=== PATIENT | female | born 1960 | race Two or more races ===

== ENCOUNTER 2017-10-10 19:13 | Emergency (ER) | payer MEDICAID ==
[~2017-10-10] VITALS: Ht 165.1 cm; Wt 72.0 kg
[2017-10-10] MEDS ORDERED: IBUPROFEN 200 MG TABLET PO ONE (19:30)
[2017-10-10] MEDS ORDERED: IBUPROFEN 200 MG TABLET ONE (19:38)
[2017-10-10 19:41] VITALS: BP 117/83
== END 2017-10-10 21:15 | disposition left against medical advice (07) ==
LOC: ED 21:09
DX: T74.21XA Adult sexual abuse, confirmed, initial encounter (principal); S00.83XA Contusion of other part of head, initial encounter; S40.022A Contusion of left upper arm, initial encounter; Y04.0XXA Assault by unarmed brawl or fight, initial encounter; Y93.89 Activity, other specified; Y92.098 Other place in other non-institutional residence as the place of occurrence of the external cause; Y99.8 Other external cause status
CPT/HCPCS: 70450; 70486; 99284

== ENCOUNTER 2018-07-27 07:35 | Emergency (ER) | payer MEDICAID ==
[~2018-07-27] VITALS: Ht 167.6 cm; Wt 75.8 kg
[2018-07-27] MEDS ORDERED: FAMOTIDINE 20 MG TABLET PO ONE (08:00)
[2018-07-27] MEDS ORDERED: FAMOTIDINE 20 MG TABLET ONE (08:10)
[2018-07-27 08:53] VITALS: BP 104/71
[2018-07-27 09:33] LABS: MICROSCOPIC NOT IND
[2018-07-27 09:35] LABS: CULTURE INDICATED? NO
== END 2018-07-27 10:20 | disposition home or self-care (01) ==
LOC: ED 08:21
DX: T78.1XXA Other adverse food reactions, not elsewhere classified, initial encounter (principal); X58.XXXA Exposure to other specified factors, initial encounter
CPT/HCPCS: 81003; 99284; J7512; Q0177

== ENCOUNTER 2018-08-16 17:14 | Emergency (ER) | payer MEDICAID ==
[~2018-08-16] VITALS: Ht 165.1 cm; Wt 74.2 kg
[2018-08-16 17:18] VITALS: BP 119/79
[2018-08-16] MEDS ORDERED: DEXAMETHASONE 4 MG/ML, 1ML PO ONE (17:30)
[2018-08-16] MEDS ORDERED: DEXAMETHASONE 4 MG/ML, 1ML ONE (17:48)
== END 2018-08-16 18:13 | disposition home or self-care (01) ==
LOC: ED 18:00
DX: J02.0 Streptococcal pharyngitis (principal); F17.200 Nicotine dependence, unspecified, uncomplicated
CPT/HCPCS: 87081; 87880; 99284; J1100